=== PATIENT | male | born 1985 | race Caucasian/White ===

== ENCOUNTER 2017-05-14 13:06 | Emergency (ER) | payer OTHER ==
[~2017-05-14] VITALS: Ht 172.7 cm; Wt 119.5 kg
[2017-05-14 13:14] VITALS: Ht 172.7 cm; Wt 119.5 kg
[2017-05-14] MEDS ORDERED: HYDROCODONE/APAP (5/325) TAB PO ONE (15:30)
[2017-05-14] MEDS ORDERED: SOD CHLORIDE 0.9% 1,000 ML IV STA (15:59)
--- NOTE | 2017-05-14 16:07 | RADRPT ---
PROCEDURE: XR Right Tibia and Fibula. CLINICAL INDICATION: Trauma due to a fall. Right lower leg pain. TECHNIQUE: Two views. Frontal and lateral. COMPARISON: No prior studies are available for comparison. FINDINGS: There is no fracture or dislocation. The soft tissues are normal. Articular surfaces are intact. There is no lytic or blastic lesion. There is no radiopaque foreign body. IMPRESSION: 1. Normal images of the right tibia and fibula. RPTAT: QQ .Percy De La Cruz MD, Date Time Electronically viewed and signed by .Percy De La Cruz MD, on 05/14/2017 16:07 .R/
--- NOTE | 2017-05-14 16:08 | RADRPT ---
PROCEDURE: Right knee radiographs. CLINICAL INDICATION: Trauma due to a fall. Right knee pain. TECHNIQUE: Three views. Weight bearing. Frontal, lateral, and patellar view. COMPARISON: No prior studies are available for comparison. FINDINGS: There is no fracture or dislocation. The soft tissues are normal. The articular surfaces are intact. There are small osteophytes arising from the superior and inferio r patella. There is no lytic or blastic lesion. There is no radiopaque foreign body. IMPRESSION: 1. Mild degenerative change. 2. Otherwise unremarkable images of the right knee. RPTAT: QQ .Percy De La Cruz MD, Date Time Electronically viewed and signed by .Percy De La Cruz MD, on 05/14/2017 16:07 .R/
[2017-05-14 16:35] LABS: BASOPHIL # 0.1 10^3/ul (0.0-0.1); BASOPHILS % 0.5 % (0.0-2.0); EOSINOPHILS # 0.1 10^3/ul (0.0-0.5); EOSINOPHILS % 0.4 % (0.0-7.0); HEMOGLOBIN 15.8 g/dl (14.0-18.0); LYMPHOCYTES # 2.5 10^3/ul (0.8-2.9); LYMPHOCYTES % 17.6 % (15.0-51.0); MEAN CORPUSCULAR HEMOGLOBIN 34.1 pg (29.0-33.0); MEAN CORPUSCULAR HGB CONC 34.3 g/dl (32.0-37.0); MEAN CORPUSCULAR VOLUME 99.4 fl (82.0-101.0); MEAN PLATELET VOLUME 10.4 fl (7.4-10.4); MONOCYTE # 1.1 10^3/ul (0.3-0.9); MONOCYTES % 8.1 % (0.0-11.0); NEUTROPHIL # 10.1 10^3/ul (1.6-7.5); PLATELET COUNT 301 10^3/UL (140-415); RED BLOOD COUNT 4.63 10^6/ul (4.70-6.10); RED CELL DISTRIBUTION WIDTH 13.4 % (11.5-14.5)
[2017-05-14 16:59] LABS: CALCIUM 9.6 mg/dl (8.4-10.2); CREATININE 0.75 mg/dl (0.61-1.24); POTASSIUM 3.1 mmol/L (3.5-5.1)
[2017-05-14] MEDS ORDERED: IOHEXOL 300MG/ML 150 ML BTL ONE (17:06)
[2017-05-14] MEDS ORDERED: SOD CHLORIDE 0.9% 100 ML ONE (17:06)
[2017-05-14] MEDS ORDERED: IOHEXOL 100 ML ONE (17:06)
[2017-05-14] MEDS ORDERED: IOHEXOL 350MG/ML 50 ML BTL ONE (17:06)
[2017-05-14] MEDS ORDERED: POTASSIUM CHLORIDE (SR) 20 MEQ TAB PO STA (17:58)
--- NOTE | 2017-05-14 18:48 | RADRPT ---
PROCEDURE: CT angiogram runoff of the lower extremities CLINICAL INDICATION: Popliteal trauma. Lower extremity pain. TECHNIQUE: CT angiogram runoff of the abdomen, pelvis and lower extremities from just below the re nal artery origins to the toes is performed following the uneventful intravenous injection of 125 cc Omnipaque 350. The exam is reconstructed at 2.5 mm intervals with coronal and sagittal reformatted images also submitted to the PACS for review. Coronal and sagittal MIP are obtained. 3-D post proce ssing reconstruction series are not obtained. One or more of the following dose reduction techniques were used: Automated exposure control, adjustment of the mA and/or kV according to patient size, us e of iterative reconstruction technique. CTDI= 33.38 mGy; DLP= 1696.11 mGy-cm COMPARISON: X-ray right knee and right tibia and fibula 05/14/2017 FINDINGS: ARTERIAL FINDINGS: Abdominal aorta: Renal segment: Unremarkable the maximum dimension of 1.8 cm. Infrarenal segment: Unremarkable, the maximum dimension 1.7 cm. Iliac systems: Common iliac arteries: Normal symmetric enhancement is present without dissection, occlusion or lisa nosis. External iliac arteries: Normal symmetric enhancement is present without dissection, occlusion or s tenosis. Lower extremities: Right: Normal enhancement is present in the common femoral, profunda femoral and superficial femora l arteries segments without contrast extravasation, dissection, occlusion or stenosis.. The poplitea l artery is normal without evidence of pseudoaneurysm or contrast extravasation. There is normal enh ancement of the right anterior tibial, peroneal and posterior tibial arteries. Normal enhancement of the dorsalis pedis artery and plantar arch is identified Left: There is normal enhancement from the common femoral artery through the dorsalis pedis artery w ith no evidence of contrast extravasation, dissection or pseudoaneurysm. No occlusion or stenosis is present. NON ARTERIAL FINDINGS: A moderate suprapatellar joint effusion of the right knee is seen. There is moderate to severe edema overlying the medial greater than lateral patellar retinaculum concerning for a possible partial me dial patellar retinacular strain with mild subluxation laterally of the patella. There is no evidenc e of radiographically occult fracture. Mild edema within the anterior superior right leg is present. There is some edema within the medial right thigh overlying the adductor musculature. There is no e vidence of intramuscular hematoma to suggest a tear. The visualized visceral structures of the abdom en and pelvis show no abnormalities. There is no evidence of free fluid. RPTAT:HJJR IMPRESSION: 1. Normal CT angiogram of the abdomen, pelvis and bilateral lower extremities without evidence of di ssection, pseudoaneurysm or contrast extravasation. 2. Right suprapatellar joint effusion with edematous changes overlying the patellar retinacula estephania rning for medial patellar retinacula strain or partial tear with subtle lateral subluxation of the r ight patella. 3. No evidence of radiographically occult fracture. 4. Mild post traumatic edema within the medial right thigh compartment without organized hematoma or intramuscular abnormality. Physician Lety Date Time Electronically viewed and signed by Physician Lety on 05/14/2017 18:48 JR/
--- NOTE | 2017-05-14 18:58 | ERD ---
ER Documentation Chief Complaint Date/Time DATE: 05/14/17 TIME: 18:53 Chief Complaint Patient claims right knee pain x 2 days HPI This is a 32-year-old male who presents the emergency department today complaining of right knee pain for the past 6 days. Patient states he was carrying his child when he slipped and fell and missed a step and states that his knee went out of place and went back in. States [facility] and [facility] x-rays done but he is unsure of the results. States he was told to follow-up for an MRI but he was unable to get a ride there today. States he has a significant amount of pain. Denies any fevers or chills, previous trauma. ROS All systems reviewed and are negative except as per history of present illness. Medications Home Meds Active Scripts Acetaminophen* (Tylophen*) 500 Mg Capsule, 1 CAP PO Q6H Y for PAIN AND OR ELEVATED TEMP, #30 CAP Prov:ROCIO MARTIN PA-C 05/14/17 Hydrocodone/Acetaminophen (Lawler 5-325 Tablet) 1 Each Tablet, 1 TAB PO Q6H Y for PAIN, #10 TAB Prov:ROCIO MARTIN PA-C 05/14/17 Allergies Allergies: Coded Allergies: No Known Allergy (Unverified , 05/14/17) Physical Exam Vitals Vital Signs Date Time Temp Pulse Resp B/P Pulse Ox O2 Delivery O2 Flow Rate FiO2 05/14/17 13:14 99.7 133 20 149/106 98 Physical Exam Const: NAD Head: Atraumatic Eyes: Normal Conjunctiva ENT: Normal External Ears, Nose and Mouth. Neck: Full range of motion..~ No meningismus. Resp: Clear to auscultation bilaterally Cardio: Regular rate and rhythm, no murmurs Abd: Soft, non tender, non distended. Normal bowel sounds Skin: Right lower extremity with diffuse ecchymosis MSk: Right knee with no obvious deformity. Moderate effusion. Decreased range of motion secondary to pain. Diffuse ecchymosis over her entire right lower extremity. Pulses 2+. Distal neurovascularly intact. Neur: Awake and alert Psych: Normal Mood and Affect Result Diagram: 05/14/17 1621 05/14/17 1621 Results 24 hrs Laboratory Tests Test 05/14/17 16:21 White Blood Count 14.010^3/ul Red Blood Count 4.6310^6/ul Hemoglobin 15.8g/dl Hematocrit 46.0% Mean Corpuscular Volume 99.4fl Mean Corpuscular Hemoglobin 34.1pg Mean Corpuscular Hemoglobin Concent 34.3g/dl Red Cell Distribution Width 13.4% Platelet Count 55962^3/UL Mean Platelet Volume 10.4fl Neutrophils % 72.0% Lymphocytes % 17.6% Monocytes % 8.1% Eosinophils % 0.4% Basophils % 0.5% Nucleated Red Blood Cells % 0.0/100WBC Neutrophils # 10.110^3/ul Lymphocytes # 2.510^3/ul Monocytes # 1.110^3/ul Eosinophils # 0.110^3/ul Basophils # 0.110^3/ul Nucleated Red Blood Cells # 0.010^3/ul Sodium Level 141mmol/L Potassium Level 3.1mmol/L Chloride Level 104mmol/L Carbon Dioxide Level 27mmol/L Anion Gap 13 Blood Urea Nitrogen 6mg/dl Creatinine 0.75mg/dl Glucose Level 133mg/dl Calcium Level 9.6mg/dl Current Medications Medications (Trade) Dose Ordered Sig/Ravinder Route PRN Reason Start Time Stop Time Status Last Admin Dose Admin Acetaminophen/ Hydrocodone Bitart 1 tab 1 tab ONCE ONCE PO 05/14/17 15:30 05/14/17 15:31 DC 05/14/17 15:21 Sodium Chloride (NS) 1,000 ml @ 1,000 mls/hr Q1H STAT IV 05/14/17 15:59 05/14/17 16:58 DC 05/14/17 16:13 IV Flush 10 ml 10 ml STK-MED ONCE .ROUTE 05/14/17 17:06 05/14/17 17:07 DC 05/14/17 17:37 Sodium Chloride (NS) 100 ml @ ud STK-MED ONCE .ROUTE 05/14/17 17:06 05/14/17 17:07 DC 05/14/17 17:38 Iohexol 150 ml 150 ml STK-MED ONCE .ROUTE 05/14/17 17:06 05/14/17 17:07 DC Iohexol (Omnipaque) 100 ml @ ud STK-MED ONCE .ROUTE 05/14/17 17:06 05/14/17 17:07 DC 05/14/17 17:37 Iohexol (Omnipaque 350mg/ ml) 50 ml STK-MED ONCE .ROUTE 05/14/17 17:06 05/14/17 17:07 DC 05/14/17 17:38 Potassium Chloride (Klor-Con 20) 40 meq ONCE STAT PO 05/14/17 17:58 05/14/17 17:59 DC 05/14/17 18:05 DIAGNOSTIC IMAGING REPORT Patient: MANASA CASAS : 1985 Age: 32 Sex: M MR #: [id number] DOS: 05/14/17 0000 Ordering MD: ROCIO MARTIN PA-C Location: [facility] Room/Bed: PROCEDURE: Right knee radiographs. CLINICAL INDICATION: Trauma due to a fall. Right knee pain. TECHNIQUE: Three views. Weight bearing. Frontal, lateral, and patellar view. COMPARISON: No prior studies are available for comparison. FINDINGS: There is no fracture or dislocation. The soft tissues are normal. The articular surfaces are intact. There are small osteophytes arising from the superior and inferior patella. There is no lytic or blastic lesion. There is no radiopaque foreign body. IMPRESSION: 1. Mild degenerative change. 2. Otherwise unremarkable images of the right knee. RPTAT: QQ .Percy De La Cruz MD, MD Date Time Electronically viewed and signed by .Percy De La Cruz MD, on 05/14/2017 16:07 .R/ CC: ROCIO MARTIN PA-C DIAGNOSTIC IMAGING REPORT Patient: MANASA CASAS : 1985 Age: 32 Sex: M MR #: [id number] DOS: 05/14/17 0000 Ordering MD: ROCIO MARTIN PA-C Location: [facility] Room/Bed: PROCEDURE: XR Right Tibia and Fibula. CLINICAL INDICATION: Trauma due to a fall. Right lower leg pain. TECHNIQUE: Two views. Frontal and lateral. COMPARISON: No prior studies are available for comparison. FINDINGS: There is no fracture or dislocation. The soft tissues are normal. Articular surfaces are intact. There is no lytic or blastic lesion. There is no radiopaque foreign body. IMPRESSION: 1. Normal images of the right tibia and fibula. RPTAT: QQ .Percy De La Cruz MD, MD Date Time Electronically viewed and signed by .Percy De La Cruz MD, on 05/14/2017 16:07 .R/ CC: ROCIO MARTIN PA-C DIAGNOSTIC IMAGING REPORT Patient: MANASA CASAS : 1985 Age: 32 Sex: M MR #: [id number] DOS: 05/14/17 1559 Ordering MD: KAROL JEAN BAPTISTE MD Location: [facility] Room/Bed: PROCEDURE: CT angiogram runoff of the lower extremities CLINICAL INDICATION: Popliteal trauma. Lower extremity pain. TECHNIQUE: CT angiogram runoff of the abdomen, pelvis and lower extremities from just below the renal artery origins to the toes is performed following the uneventful intravenous injection of 125 cc Omnipaque 350. The exam is reconstructed at 2.5 mm intervals with coronal and sagittal reformatted images also submitted to the PACS for review. Coronal and sagittal MIP are obtained. 3- D post processing reconstruction series are not obtained. One or more of the following dose reduction techniques were used: Automated exposure control, adjustment of the mA and/or kV according to patient size, use of iterative reconstruction technique. CTDI= 33.38 mGy; DLP= 1696.11 mGy-cm COMPARISON: X-ray right knee and right tibia and fibula 05/14/2017 FINDINGS: ARTERIAL FINDINGS: Abdominal aorta: Renal segment: Unremarkable the maximum dimension of 1.8 cm. Infrarenal segment: Unremarkable, the maximum dimension 1.7 cm. Iliac systems: Common iliac arteries: Normal symmetric enhancement is present without dissection, occlusion or stenosis. External iliac arteries: Normal symmetric enhancement is present without dissection, occlusion or stenosis. Lower extremities: Right: Normal enhancement is present in the common femoral, profunda femoral and superficial femoral arteries segments without contrast extravasation, dissection, occlusion or stenosis.. The popliteal artery is normal without evidence of pseudoaneurysm or contrast extravasation. There is normal enhancement of the right anterior tibial, peroneal and posterior tibial arteries. Normal enhancement of the dorsalis pedis artery and plantar arch is identified Left: There is normal enhancement from the common femoral artery through the dorsalis pedis artery with no evidence of contrast extravasation, dissection or pseudoaneurysm. No occlusion or stenosis is present. NON ARTERIAL FINDINGS: A moderate suprapatellar joint effusion of the right knee is seen. There is moderate to severe edema overlying the medial greater than lateral patellar retinaculum concerning for a possible partial medial patellar retinacular strain with mild subluxation laterally of the patella. There is no evidence of radiographically occult fracture. Mild edema within the anterior superior right leg is present. There is some edema within the medial right thigh overlying the adductor musculature. There is no evidence of intramuscular hematoma to suggest a tear. The visualized visceral structures of the abdomen and pelvis show no abnormalities. There is no evidence of free fluid. RPTAT:HJJR IMPRESSION: 1. Normal CT angiogram of the abdomen, pelvis and bilateral lower extremities without evidence of dissection, pseudoaneurysm or contrast extravasation. 2. Right suprapatellar joint effusion with edematous changes overlying the patellar retinacula concerning for medial patellar retinacula strain or partial tear with subtle lateral subluxation of the right patella. 3. No evidence of radiographically occult fracture. 4. Mild post traumatic edema within the medial right thigh compartment without organized hematoma or intramuscular abnormality. Physician Lety Date Time Electronically viewed and signed by Physician Lety on 05/14/2017 18:48 JR/ CC: KAROL JEAN BAPTISTE MD Procedures/MDM This is a 32-year-old male who presents the emergency department today complaining of right knee pain after sustaining a trauma in which he states his "knee popped out". Patient had been scheduled for an [facility] at [facility] however was unable to make his appointment as he had no ride at the time. Patient was complaining of pain. Patient was unsure of his x-ray results. On physical eExam patient had a moderate effusion as well as diffuse lower extremity moderate to severe ecchymosis. In this I did obtain images. Per the radiology report images of the right tibia and fibula are unremarkable. There is no fracture or dislocation. Images of the right knee show no acute fracture or dislocation. There are mild degenerative changes. There are small osteophytes arising from the superior and inferior patella. I discussed the patient with Dr. Hernandez given the severity of the effusion and ecchymosis and that I did have some concern for arterial damage and he recommended a CT scan. Images of the CT scan show normal symmetric enhancement present without dissection, occlusion or stenosis with common iliac and external iliac arteries. There is normal enhancement present in the common femoral, profunda femoris and superficial femoral arteries without contrast extravasation, dissection or occlusion or stenosis. Popliteal artery is normal without evidence of pseudoaneurysm or contrast extravasation. There is normal enhancement of the right anterior tibial peroneal and posterior tibial arteries. There is normal enhancement the dorsal pedis artery and plantar arch. There is a moderate suprapatellar joint effusion of the right knee. There is moderate to severe overlying edema in the medial greater than lateral patellar retinaculum concerning for possible partial medial patellar retinacular strain with mild subluxation laterally of the patella. There is no evidence radiographically of occult for acute fracture there is mild edema within the anterior superior right leg present and there is some edema within the medial right thigh overlying the abductor muscle. There is no evidence of intramuscular hematoma to suggest a tear. Symptoms at this time is consistent with knee pain and likely patella subluxation versus previous patella dislocation. I have explained this to the patient. There is no evidence of acute fracture dislocation. Patient had been using his friend's knee immobilizer and it was replaced today with a proper sized fitting knee immobilizer. He was also given crutches to help ambulate. Patient had been given morphine and IV fluids here in the emergency department for pain and secondary to IV contrast. Patient's potassium was low at 3.1 and was therefore given 40 of K-Dur Patient was given a short course of Lawler and Tylenol for home. He was instructed to follow back up with [facility] and reschedule an appointment for his MRI. Patient understood and agreed with the plan. At this time the patient is stable for discharge and outpatient management. Patient should follow up with their PCP in the next 1-2 days. They may return to the emergency department sooner for any persistent or worsening of symptoms. Patient understood and agreed with the plan. Discussed the patient with Dr. Jean Baptiste and he is in agreement with the plan Departure Diagnosis: Primary Impression: Knee injury Encounter type: initial encounter Laterality: right Qualified Code: S89.91XA - Injury of right knee, initial encounter Condition: Fair ROCIO MARTIN PA-C May 14, 2017 18:58
[2017-05-14] MEDS ORDERED: ACET500C5 PO (19:01)
[2017-05-14] MEDS ORDERED: HYDR-906 PO (19:01)
[2017-05-14 19:10] VITALS: BP 137/82; PULSE 65; RESP 20; TEMP 98.9
== END 2017-05-14 19:26 | disposition home or self-care (01) ==
LOC: FTE 13:06
DX: S89.91XA Unspecified injury of right lower leg, initial encounter (principal); W10.9XXA Fall (on) (from) unspecified stairs and steps, initial encounter; Y92.9 Unspecified place or not applicable
CPT/HCPCS: 29505; 36415; 73562; 73590; 73706; 80048; 85025; J7030; Q9967; Z7502; Z7610

== ENCOUNTER 2018-01-06 16:14 | Emergency (ER) | END 2018-01-06 16:57 | disposition home or self-care (01) ==